=== PATIENT | male | born 1970 | race Hispanic/Latino ===

== ENCOUNTER 2020-01-30 02:04 | Emergency (ER) | payer SELFPAY ==
[2020-01-30 02:50] LABS: Absolute Lymphocytes (CBC) 2.8 K/uL (0.7-4.9); Basophils % 1.1 % (0-1.3); Hematocrit 45.2 % (39.6-49.0); MPV 10.9 fL (7.6-11.3); RBC Red Blood Cell Count 5.34 M/uL (4.33-5.43)
[2020-01-30 02:54] LABS: Protime INR 0.96
[2020-01-30 03:05] LABS: ALT/SGPT 45 U/L (12-78); AST/SGOT 17 U/L (15-37); Albumin 3.9 g/dL (3.4-5.0); Alkaline Phosphatase 69 U/L (45-117); BUN Blood Urea Nitrogen 13 mg/dL (7-18); Bicarbonate 24 mmol/L (21-32); Bilirubin Direct < 0.1 mg/dL (0-0.2); Bilirubin Total 0.3 mg/dL (0.2-1.0); CKMB Creatine Kinase MB 2.9 ng/mL (0.3-3.6); Creatine Phosphokinase 117 U/L (39-308); Glucose Level 200 mg/dL (74-106); Potassium 3.5 mmol/L (3.5-5.1); Protein, Total 7.1 g/dL (6.4-8.2); Sodium Level 140 mmol/L (136-145); Troponin (Emerg Dept Use Only) < 0.02 ng/mL (0.0-0.045)
[2020-01-30 03:06] LABS: Lipase 138 U/L (73-393); Magnesium 2.1 mg/dL (1.8-2.4)
[2020-01-30 03:28] LABS: Barbiturates NEGATIVE (NEGATIVE); Benzodiazepines NEGATIVE (NEGATIVE); Cocaine NEGATIVE (NEGATIVE); METHAMPHETAM NEGATIVE (NEGATIVE); Methadone NEGATIVE (NEGATIVE); Opiates NEGATIVE (NEGATIVE); Phencyclidine NEGATIVE (NEGATIVE); THC Cannibis NEGATIVE (NEGATIVE)
[2020-01-30 03:29] LABS: Urine Blood NEGATIVE (NEG); Urine Glucose TRACE (NEG); Urine Protein 1+ (NEG); Urine Specific Gravity >1.030 (1.005-1.030)
--- NOTE | 2020-01-30 04:04 | ER ---
Nurse's Notes [facility] Name: Rajeev Bellamy Age: 49 yrs Sex: Male : 1970 Arrival Date: 01/30/2020 Time: 02:30 Bed 4 Private MD: Diagnosis: Alcohol use, unspecified with intoxication Presentation: 01/29 02:32 Chief complaint: EMS states: PATIENT CONSUMED BEERS AT A GREEN PARTY. WENT HOME AND PLAYED rv BASKETBALL, FELL DOWN. DENIES HEAD INJURY, ABLE TO STAND BACK UP AND AMBULATE. WENT TO THE BATHROOM TO TAKE A SHOWER, HAD A SYNCOPAL EPISODE. DENIES MEMORY OF THE EVENT AFTER THAT. DENIES ANY PAIN. COMPLAINS OF DIZZINESS. Coronavirus screen: Proceed with normal triage. Ebola Screen: No symptoms or risks identified at this time. Initial Sepsis Screen: Does the patient meet any 2 criteria? No. Patient's initial sepsis screen is negative. Does the patient have a suspected source of infection? No. Patient's initial sepsis screen is negative. Risk Assessment: Do you want to hurt yourself or someone else? Patient reports no desire to harm self or others. Onset of symptoms is unknown. 02:32 Method Of Arrival: EMS: [facility] rv 02:32 Acuity: RUMA 3 rv Triage Assessment: 02:33 General: Appears comfortable, Behavior is calm, cooperative. Pain: Denies pain. EENT: rv No signs and/or symptoms were reported regarding the EENT system. Neuro: Level of Consciousness is awake, alert, obeys commands, Oriented to person, place, time, situation, Moves all extremities. Full function Speech is normal, Pupils are PERRLA, Pupil Size: 2 Reports dizziness. Cardiovascular: Patient's skin is warm and dry. Rhythm is regular. Respiratory: Airway is patent Respiratory effort is even, unlabored, Respiratory pattern is regular. Derm: Skin is intact. Musculoskeletal: No signs and/or symptoms reported regarding the musculoskeletal system. Historical: - Allergies: 02:33 No Known Allergies; rv - Home Meds: 02:33 None [Active]; rv - PMHx: 02:33 None; rv - PSHx: 02:33 Appendectomy; rv - Immunization history:: Adult Immunizations up to date. - Social history:: Smoking status: Patient/guardian denies using tobacco, Stopped _ months ago 6. Screenin:35 Abuse screen: Denies threats or abuse. Denies injuries from another. Nutritional rv screening: No deficits noted. Tuberculosis screening: No symptoms or risk factors identified. Fall Risk None identified. Assessment: 02:20 General: Appears in no apparent distress. comfortable, Behavior is calm, cooperative, jb4 appropriate for age. Pain: Denies pain. Neuro: Level of Consciousness is awake, alert, obeys commands, Oriented to person, place, time, situation, Moves all extremities. Full function Speech is normal, Facial symmetry appears normal, Pupils are PERRLA, Pupil Size: 6 dilated. Cardiovascular: Patient's skin is warm and dry. Respiratory: Airway is patent Respiratory effort is even, unlabored, Respiratory pattern is regular, symmetrical. GI: No signs and/or symptoms were reported involving the gastrointestinal system. : No signs and/or symptoms were reported regarding the genitourinary system. EENT: No signs and/or symptoms were reported regarding the EENT system. Derm: Skin is healthy with good turgor, Skin is pink, warm \T\ dry. Musculoskeletal: Circulation, motion, and sensation intact. Range of motion: intact in all extremities. 03:16 Reassessment: Patient appears in no apparent distress at this time. Patient and/or jb4 family updated on plan of care and expected duration. Pain level reassessed. Pt is resting in bed with eyes closed, respirations are even and unlabored. No s/s of pain or distress noted. Vital Signs: 02:32 BP 120 / 70; Pulse 60; Resp 16; Temp 97.6; Pulse Ox 97% ; Weight 99.79 kg; Height 6 ft. rv (182.88 cm); Pain 0/10; 03:00 BP 136 / 81; Pulse 60; Resp 16; Pulse Ox 96% on R/A; jb4 04:15 BP 126 / 80; Pulse 66; Resp 16; Temp 97.9; Pulse Ox 99% on R/A; rv 02:32 Body Mass Index 29.84 (99.79 kg, 182.88 cm) rv [place] Coma Score: 03:00 Eye Response: spontaneous(4). Verbal Response: oriented(5). Motor Response: obeys rv commands(6). Total: 15. 04:16 Eye Response: spontaneous(4). Verbal Response: oriented(5). Motor Response: obeys rv commands(6). Total: 15. ED Course: 02:30 Patient arrived in ED. lp1 02:31 Robert Montenegro, RN is Primary Nurse. rv 02:33 Triage completed. rv 02:34 Arm band placed on Patient placed in the treatment room, on a stretcher, Patient rv notified of wait time. 02:34 Initial lab(s) drawn, by me, sent to lab. EKG done, by ED staff, reviewed by Naman White MD. Inserted saline lock: 18 gauge in right antecubital area, using aseptic technique. Blood collected. 02:35 Patient has correct armband on for positive identification. Bed in low position. Call rv light in reach. Side rails up X 1. bus driver/monitor on. Pulse ox on. NIBP on. 02:39 Naman White MD is Attending Physician. [facility] 04:16 No provider procedures requiring assistance completed. IV discontinued, intact, rv bleeding controlled, No redness/swelling at site. Pressure dressing applied. Administered Medications: No medications were administered Outcome: 04:04 Discharge ordered by . 7 04:16 Discharged to home ambulatory, with family. rv 04:16 Condition: good 04:16 Discharge instructions given to patient, Instructed on discharge instructions, follow up and referral plans. Demonstrated understanding of instructions, follow-up care. 04:17 Patient left the ED. rv Signatures: Joan Wilson, RN RN lp1 Avery Robles RN RN jb4 Robert Montenegro, LORE TORREZ rv Naman White MD MD [facility]
--- NOTE | 2020-01-30 04:04 | EDPHYS ---
Physician Documentation [facility] Name: Rajeev Bellamy Age: 49 yrs Sex: Male : 1970 Arrival Date: 01/30/2020 Time: 02:30 Bed 4 Private MD: ED Physician Naman White HPI: 01/29 02:51 This 49 yrs old Male presents to ER via EMS with complaints of Syncope. mh7 02:51 The patient has experienced syncope, collapsed. Onset: The symptoms/episode mh7 began/occurred just prior to arrival, today. Duration: This was a single episode, that lasted an unknown period of time. Context: the episode(s) was witnessed, by no one, occurred at home, occurred while the patient was Showering. Just prior to the episode the patient experienced no apparent symptoms. Associated injury: The patient did not suffer any apparent associated injury. Associated signs and symptoms: The patient has no apparent associated signs or symptoms, Pertinent negatives: abdominal pain, agitation, ataxia, blurred vision, chest pain, combativeness, confusion, diaphoresis, diarrhea, dizziness, headache, lightheadedness, nausea, numbness, palpitations, seizure, shortness of breath, tingling, vertigo, vomiting, weakness. Current symptoms: Currently, the patient is not experiencing any symptoms, the patient feels back to baseline. Historical: - Allergies: 02:33 No Known Allergies; rv - Home Meds: 02:33 None [Active]; rv - PMHx: 02:33 None; rv - PSHx: 02:33 Appendectomy; rv - Immunization history:: Adult Immunizations up to date. - Social history:: Smoking status: Patient/guardian denies using tobacco, Stopped _ months ago 6. ROS: 02:51 Constitutional: Negative for fever, chills, and weight loss, Eyes: Negative for injury, mh7 pain, redness, and discharge, ENT: Negative for injury, pain, and discharge, Neck: Negative for injury, pain, and swelling, Cardiovascular: Negative for chest pain, palpitations, and edema, Respiratory: Negative for shortness of breath, cough, wheezing, and pleuritic chest pain, Abdomen/GI: Negative for abdominal pain, nausea, vomiting, diarrhea, and constipation, Back: Negative for injury and pain, : Negative for injury, bleeding, discharge, and swelling, MS/Extremity: Negative for injury and deformity, Skin: Negative for injury, rash, and discoloration, Psych: Negative for depression, anxiety, suicide ideation, homicidal ideation, and hallucinations, Allergy/Immunology: Negative for hives, rash, and allergies, Endocrine: Negative for neck swelling, polydipsia, polyuria, polyphagia, and marked weight changes, Hematologic/Lymphatic: Negative for swollen nodes, abnormal bleeding, and unusual bruising. Exam: 02:51 Constitutional: This is a well developed, well nourished patient who is awake, alert, mh7 and in no acute distress. Head/Face: Normocephalic, atraumatic. Eyes: Pupils equal round and reactive to light, extra-ocular motions intact. Lids and lashes normal. Conjunctiva and sclera are non-icteric and not injected. Cornea within normal limits. Periorbital areas with no swelling, redness, or edema. ENT: Nares patent. No nasal discharge, no septal abnormalities noted. Tympanic membranes are normal and external auditory canals are clear. Oropharynx with no redness, swelling, or masses, exudates, or evidence of obstruction, uvula midline. Mucous membranes moist. Neck: Trachea midline, no thyromegaly or masses palpated, and no cervical lymphadenopathy. Supple, full range of motion without nuchal rigidity, or vertebral point tenderness. No Meningismus. Chest/axilla: Normal chest wall appearance and motion. Nontender with no deformity. No lesions are appreciated. Cardiovascular: Regular rate and rhythm with a normal S1 and S2. No gallops, murmurs, or rubs. Normal PMI, no JVD. No pulse deficits. Respiratory: Lungs have equal breath sounds bilaterally, clear to auscultation and percussion. No rales, rhonchi or wheezes noted. No increased work of breathing, no retractions or nasal flaring. Abdomen/GI: Soft, non-tender, with normal bowel sounds. No distension or tympany. No guarding or rebound. No evidence of tenderness throughout. Back: No spinal tenderness. No costovertebral tenderness. Full range of motion. Skin: Warm, dry with normal turgor. Normal color with no rashes, no lesions, and no evidence of cellulitis. MS/ Extremity: Pulses equal, no cyanosis. Neurovascular intact. Full, normal range of motion. Neuro: Awake and alert, GCS 15, oriented to person, place, time, and situation. Cranial nerves II-XII grossly intact. Motor strength 5/5 in all extremities. Sensory grossly intact. Cerebellar exam normal. Normal gait. Psych: Awake, alert, with orientation to person, place and time. Behavior, mood, and affect are within normal limits. 02:51 Constitutional: The patient appears Appears intoxicated 04:08 ECG was reviewed by the Attending Physician. mh7 Vital Signs: 02:32 BP 120 / 70; Pulse 60; Resp 16; Temp 97.6; Pulse Ox 97% ; Weight 99.79 kg; Height 6 ft. rv (182.88 cm); Pain 0/10; 03:00 BP 136 / 81; Pulse 60; Resp 16; Pulse Ox 96% on R/A; jb4 04:15 BP 126 / 80; Pulse 66; Resp 16; Temp 97.9; Pulse Ox 99% on R/A; rv 02:32 Body Mass Index 29.84 (99.79 kg, 182.88 cm) rv [place] Coma Score: 03:00 Eye Response: spontaneous(4). Verbal Response: oriented(5). Motor Response: obeys rv commands(6). Total: 15. 04:16 Eye Response: spontaneous(4). Verbal Response: oriented(5). Motor Response: obeys rv commands(6). Total: 15. MDM: 02:39 Patient medically screened. [facility] 04:01 Differential Diagnosis: cardiac arrhythmia, drug effect, emotional response, idiopathic mh7 syncope, pseudo seizure, seizure, vasovagal episode, Alcohol intoxication, Substance abuse. Data reviewed: vital signs, nurses notes, EMS record, lab test result(s), cardiac enzymes, CBC, drug level(s), electrolytes, EKG, radiologic studies, CT scan. Data interpreted: campus monitor: rate is 60 beats/min, rhythm is normal sinus rhythm, regular, Interpretation: normal rate, normal rhythm, Pulse oximetry: on room air is 96 %. Interpretation: normal. Counseling: I had a detailed discussion with the patient and/or guardian regarding: the historical points, exam findings, and any diagnostic results supporting the discharge/admit diagnosis, the presence of at least one elevated blood pressure reading (>120/80) during this emergency department visit, lab results, radiology results, the need for outpatient follow up, to return to the emergency department if symptoms worsen or persist or if there are any questions or concerns that arise at home. 01/29 02:32 Order name: UDS; Complete Time: 03:34 01/29 02:32 Order name: Basic Metabolic Panel; Complete Time: 03:34 01/29 02:32 Order name: CBC with Diff; Complete Time: 03:34 01/29 02:32 Order name: Ckmb; Complete Time: 03:34 01/29 02:32 Order name: CPK; Complete Time: 03:34 01/29 02:32 Order name: Hepatic Function; Complete Time: 03:34 01/29 02:32 Order name: Lipase; Complete Time: 03:34 01/29 02:32 Order name: Magnesium; Complete Time: 03:34 01/29 02:32 Order name: Protime (+inr); Complete Time: 03:34 01/29 02:32 Order name: Ptt, Activated; Complete Time: 03:34 01/29 02:32 Order name: Troponin (emerg Dept Use Only); Complete Time: 03:34 01/29 02:32 Order name: ETOH Level; Complete Time: 03:34 01/29 03:27 Order name: Urine Dipstick--Ancillary (enter results); Complete Time: 03:34 mw2 01/29 02:32 Order name: EKG; Complete Time: 02:33 01/29 02:32 Order name: Cardiac monitoring; Complete Time: 02:39 01/29 02:32 Order name: EKG - Nurse/Tech; Complete Time: 02:39 01/29 02:32 Order name: IV Saline Lock; Complete Time: 02:39 01/29 02:32 Order name: Labs collected and sent; Complete Time: 02:39 01/29 02:32 Order name: NPO; Complete Time: 02:39 01/29 02:32 Order name: O2 Per Protocol; Complete Time: 02:40 01/29 02:32 Order name: O2 Sat Monitoring; Complete Time: 02:40 01/29 02:32 Order name: Urine Dipstick-Ancillary (obtain specimen); Complete Time: 03:09 rv EC:08 Rate is 57 beats/min. Rhythm is regular, Normal Sinus Rhythm. QRS [place] is Normal. QRS mh7 is negative in leads III, aVF. IA interval is prolonged at 212 msec. QRS interval is normal. QT interval is normal. No Q waves. T waves are Normal. Administered Medications: No medications were administered Disposition: 01/30/20 04:04 Discharged to Home. Impression: Alcohol use, unspecified with intoxication. - Condition is Stable. - Discharge Instructions: Alcohol Intoxication, [id number]. - Medication Reconciliation Form, Thank You Letter, Antibiotic Education, Prescription Opioid Use form. - Follow up: Private Physician; When: 1 - 2 days; Reason: Worsening of condition, Recheck today's complaints, Re-evaluation by your physician. - Problem is new. - Symptoms have improved. Signatures: Dispatcher [employer] [facility] Robert Montenegro, RN RN Naman Hollis MD MD mh7 Corrections: (The following items were deleted from the chart) 02:47 02:33 Head Brain Wo Cont+CT.RAD.BRZ ordered. [facility] 04:17 04:04 01/30/2020 04:04 Discharged to Home. Impression: Alcohol use, unspecified with rv intoxication. Condition is Stable. Forms are Medication Reconciliation Form, Thank You Letter, Antibiotic Education, Prescription Opioid Use. Follow up: Private Physician; When: 1 - 2 days; Reason: Worsening of condition, Recheck today's complaints, Re-evaluation by your physician. Problem is new. Symptoms have improved. mh7
[2020-01-30 04:25] VITALS: BP 126/80; TEMP 97.9; O2SAT 99
--- NOTE | 2020-01-31 07:47 | EKG ---
Test Date: 2020-01-30 Test Time: 02:30:57 Forestry Engineer: SOBIA MEASUREMENT RESULTS: Intervals: Rate: 57 [place]: 212 QRSD: 112 QT: 432 QTc: 420 [place]: P: 60 [place]: 212 QRS: -45 T: 12 INTERPRETIVE STATEMENTS: Sinus bradycardia with 1st degree AV block Left anterior fascicular block Abnormal ECG No previous ECG available for comparison Electronically Signed On 01-31-20 07:44:45 CDT by Francois Cash
== END 2020-01-30 04:17 | disposition home or self-care (01) ==
LOC: ER 02:04
DX: F10.129 Alcohol abuse with intoxication, unspecified (principal)
CPT/HCPCS: 36415; 80048; 80076; 80307; 80320; 81003; 82550; 82553; 83690; 83735; 84484; 85025; 85610; 85730; 93005; 99284

== ENCOUNTER 2021-11-27 21:57 | Inpatient (IN) | payer SELFPAY ==
[2021-11-27] MEDS ORDERED: NA CHLORIDE 0.9% 2,000 ML ONE (23:44)
[2021-11-27 23:50] LABS: Absolute Lymphocytes (CBC) 2.3 K/uL (0.7-4.9); Lymphocytes % 26.2 % (15.3-44.8); MPV 10.1 fL (7.6-11.3)
[2021-11-28 00:05] LABS: Albumin 3.6 g/dL (3.4-5.0); Bilirubin Total 0.7 mg/dL (0.2-1.0); Protein, Total 6.7 g/dL (6.4-8.2)
[2021-11-28] MEDS ORDERED: ONDANSETRON 4 MG/2 ML VIAL ONE (01:07)
[2021-11-28] MEDS ORDERED: MORPHINE 4 MG/ML SYR ONE (01:07)
[2021-11-28 01:43] LABS: Urine Blood Trace-intact (Negative); Urine Glucose Negative (Negative); Urine Protein 1+ (Negative); Urine Specific Gravity >=1.030 (1.005-1.030); Urine pH 5.5 (5.0-7.0)
[2021-11-28] MEDS ORDERED: NA CHLORIDE 0.9% 1,000 ML ONE ×2 (01:44→03:26)
[2021-11-28] MEDS ORDERED: ACETYLCYST 6,000 MG/30 ML VIAL ONE (01:44)
--- NOTE | 2021-11-28 01:57 | ER ---
Nurse's Notes [facility] Name: Rajeev Bellamy Age: 51 yrs Sex: Male : 1970 Arrival Date: 11/27/2021 Time: 22:00 Bed 15 Private MD: Diagnosis: Hydronephrosis with renal and ureteral calculous obstruction-5 mm right ureter, left 2mm;Pulmonary embolism without acute cor pulmonale-right middle lobe, right lower lobe;Unspecified kidney failure-insufficency;Cholecystitis, unspecified-cholelithiasis Presentation: 11/27 22:53 Chief complaint: Patient states: C/o right flank pain for the past week, states pain is ll3 worse today 05/04, states it hurts to take a deep breath. Coronavirus screen: Vaccine status: Patient reports receiving the 2nd dose of the covid vaccine. At this time, the client does not indicate any symptoms associated with coronavirus-19. Ebola Screen: No symptoms or risks identified at this time. Initial Sepsis Screen: Does the patient meet any 2 criteria? No. Patient's initial sepsis screen is negative. Does the patient have a suspected source of infection? No. Patient's initial sepsis screen is negative. Risk Assessment: Do you want to hurt yourself or someone else? Patient reports no desire to harm self or others. Onset of symptoms is unknown. 22:53 Method Of Arrival: Ambulatory ll3 22:53 Acuity: RUMA 3 ll3 Triage Assessment: 22:56 General: Appears uncomfortable, Behavior is calm, cooperative. Pain: Complains of pain ll3 in anterior aspect of right lateral abdomen and posterior aspect of right lateral abdomen Pain currently is 9 out of 10 on a pain scale. Aggravated by Taking a deep breath. Neuro: Level of Consciousness is awake, alert, obeys commands, Oriented to person, place, time, situation. Cardiovascular: Patient's skin is warm and dry. Respiratory: Respiratory effort is even, unlabored, Respiratory pattern is regular, symmetrical. GI: Reports vomiting. Derm: Skin is pink, warm \T\ dry. Historical: - Allergies: 22:56 No Known Allergies; ll3 - Home Meds: 22:56 None [Active]; ll3 - PMHx: 22:56 None; ll3 - PSHx: 22:56 None; ll3 - Immunization history:: Client reports receiving the 2nd dose of the Covid vaccine. - Social history:: Smoking status: Patient denies any tobacco usage or history of. Screenin:38 Abuse screen: Denies threats or abuse. Nutritional screening: No deficits noted. jb4 Tuberculosis screening: No symptoms or risk factors identified. Fall Risk None identified. Assessment: 23:38 General: Appears in no apparent distress. comfortable, Behavior is calm, cooperative. jb4 Pain: Complains of pain in right upper quadrant Pain does not radiate. Pain currently is 5 out of 10 on a pain scale. Neuro: Level of Consciousness is awake, alert, obeys commands, Oriented to person, place, time, situation. Cardiovascular: Patient's skin is warm and dry. Respiratory: Airway is patent Respiratory effort is even, unlabored, Respiratory pattern is regular, symmetrical. GI: No signs and/or symptoms were reported involving the gastrointestinal system. : No signs and/or symptoms were reported regarding the genitourinary system. EENT: No signs and/or symptoms were reported regarding the EENT system. Derm: Skin is intact, Skin is pink, warm \T\ dry. 11/28 01:10 Reassessment: Patient appears in no apparent distress at this time. Patient and/or jb4 family updated on plan of care and expected duration. Pain level reassessed. Patient is alert, oriented x 3, equal unlabored respirations, skin warm/dry/pink. Pt reports an increase in pain. provider notified, see MAR for orders. 02:05 Reassessment: Patient appears in no apparent distress at this time. Patient and/or jb4 family updated on plan of care and expected duration. Pain level reassessed. Patient is alert, oriented x 3, equal unlabored respirations, skin warm/dry/pink. Ultrasound is at the bedside. 02:59 Reassessment: Patient appears in no apparent distress at this time. Patient and/or jb4 family updated on plan of care and expected duration. Pain level reassessed. Patient is alert, oriented x 3, equal unlabored respirations, skin warm/dry/pink. Vital Signs: 11/27 22:53 BP 128 / 75; Pulse 56; Resp 17; Temp 99.0(TE); Pulse Ox 99% on R/A; Weight 95.25 kg ll3 (R); Height 6 ft. 0 in. (182.88 cm) (R); Pain 9/10; 11/28 01:10 BP 166 / 96; Pulse 58; Resp 16; Pulse Ox 100% on R/A; jb4 02:00 BP 149 / 88; Pulse 51; Resp 16; Pulse Ox 99% on R/A; jb4 02:45 BP 149 / 93; Pulse 51; Resp 18; Pulse Ox 98% on R/A; jb4 11/27 22:53 Body Mass Index 28.48 (95.25 kg, 182.88 cm) ll3 ED Course: 11/27 22:00 Patient arrived in ED. ja2 22:56 Triage completed. ll3 22:56 Arm band placed on. ll3 23:09 Lee Linda MD is Attending Physician. gregory 23:28 Avery Robles, RN is Primary Nurse. jb4 23:38 Patient has correct armband on for positive identification. Placed in gown. Bed in low jb4 position. Call light in reach. Side rails up X 1. Pulse ox on. NIBP on. 23:38 Initial lab(s) drawn, by mt, sent to lab. Inserted saline lock: 18 gauge in right jb4 antecubital area, using aseptic technique. Blood collected. 0406 00:56 CT Chest For PE Angio In Process Unspecified. EDMS 00:56 CT Abd/Pelvis - IV Contrast Only In Process Unspecified. EDMS 01:54 Marco A Broussard is Hospitalizing Provider. gregory 02:43 US Extremity Venous W Compression Adolph In Process Unspecified. EDMS 02:59 No provider procedures requiring assistance completed. Patient admitted, IV remains in jb4 place. Administered Medications: 11/27 23:41 Not Given (Patient Refused): Zofran (Ondansetron) 4 mg IVP once; over 2 minutes jb4 23:41 Drug: NS 0.9% 1000 ml Route: IV; Rate: 1 bolus; Site: right antecubital; jb4 11/28 01:10 Follow up: Response: No adverse reaction; IV Status: Completed infusion; IV Intake: jb4 1000ml 11/27 23:41 Not Given (Patient Refused): morphine 4 mg IVP once; RASS on ADMIN: Combtv4, Very jb4 Agttd3, Agttd2, Rstlss1, AlertClm0, Drwsy-1, Lt Sdtn-2, Mod Sdtn-3, Dp Sdtn-4, UnArsble-5 23:42 Drug: NS 0.9% 1000 ml Route: IV; Rate: 1 bolus; Site: right antecubital; jb4 11/28 01:10 Follow up: Response: No adverse reaction; IV Status: Completed infusion; IV Intake: jb4 1000ml 01:09 Drug: morphine 4 mg Route: IVP; Site: right antecubital; jb4 01:46 Follow up: Response: No adverse reaction; Marked relief of symptoms; Pain is decreased jb4 01:09 Drug: Zofran (Ondansetron) 4 mg Route: IVP; Site: right antecubital; jb4 01:46 Follow up: Response: No adverse reaction jb4 01:46 Drug: NS 0.9% 1000 ml Route: IV; Rate: 1 bolus; Site: right antecubital; jb4 01:47 Drug: Mucomyst - Acetylcysteine 600 mg Route: PO; jb4 02:57 Follow up: Response: No adverse reaction jb4 02:45 Drug: Lovenox (enoxaparin) 1 mg/kg Route: Sub-Q; Site: right lower abdomen; jb4 02:45 Drug: Rocephin (cefTRIAXone) 1 grams Route: IV; Rate: per protocol; Site: right jb4 antecubital; 02:45 Drug: Pepcid (famotidine) 20 mg Route: IVP; Site: right antecubital; jb4 Intake: 01:10 IV: 1000ml; Total: 1000ml. jb4 01:10 IV: 1000ml; Total: 2000ml. jb4 Outcome: 01:56 Decision to Hospitalize by Provider. gregory 02:59 Admitted to ER Hold. Please see [facility] for further documentation. jb4 02:59 Condition: stable 02:59 Instructed on the need for admit, Demonstrated understanding of instructions. 09:15 Patient left the ED. vg1 Signatures: Dispatcher [employer] Lee Lindsay MD MD cha Bryson, James RN RN jb4 Vivi Deleon RN RN vg1 Marimar Lundberg Lynsea, RN RN ll3
--- NOTE | 2021-11-28 01:57 | EDPHYS ---
Physician Documentation [facility] Name: Rajeev Bellamy Age: 51 yrs Sex: Male : 1970 Arrival Date: 11/27/2021 Time: 22:00 Bed 15 Private MD: ED Physician Lee Linda HPI: 11/27 23:22 This 51 yrs old Male presents to ER via Ambulatory with complaints of Flank gregory Pain. 23:22 The patient complains of pain in the right mid back and right low back. The pain gregory radiates to the right mid back and right low back. Onset: The symptoms/episode began/occurred 1 week(s) ago. Modifying factors: The symptoms are alleviated by nothing. the symptoms are aggravated by movement. Associated signs and symptoms: The patient has no apparent associated signs or symptoms. Severity of pain: At its worst the pain was mild moderate in the emergency department the pain is unchanged. The patient has not experienced similar symptoms in the past. Historical: - Allergies: 22:56 No Known Allergies; ll3 - Home Meds: 22:56 None [Active]; ll3 - PMHx: 22:56 None; ll3 - PSHx: 22:56 None; ll3 - Immunization history:: Client reports receiving the 2nd dose of the Covid vaccine. - Social history:: Smoking status: Patient denies any tobacco usage or history of. ROS: 23:23 Constitutional: Negative for fever, chills, and weight loss, Eyes: Negative for injury, gregory pain, redness, and discharge, ENT: Negative for injury, pain, and discharge, Neck: Negative for injury, pain, and swelling, Cardiovascular: Negative for chest pain, palpitations, and edema, : Negative for injury, bleeding, discharge, and swelling, MS/Extremity: Negative for injury and deformity, Skin: Negative for injury, rash, and discoloration, Neuro: Negative for headache, weakness, numbness, tingling, and seizure, Psych: Negative for depression, anxiety, suicide ideation, homicidal ideation, and hallucinations, Allergy/Immunology: Negative for hives, rash, and allergies, Endocrine: Negative for neck swelling, polydipsia, polyuria, polyphagia, and marked weight changes, Hematologic/Lymphatic: Negative for swollen nodes, abnormal bleeding, and unusual bruising. 23:23 Respiratory: Positive for pleurisy. 23:23 Abdomen/GI: Positive for abdominal pain. Exam: 23:23 Constitutional: This is a well developed, well nourished patient who is awake, alert, gregory and in no acute distress. Head/Face: Normocephalic, atraumatic. Eyes: Pupils equal round and reactive to light, extra-ocular motions intact. Lids and lashes normal. Conjunctiva and sclera are non-icteric and not injected. Cornea within normal limits. Periorbital areas with no swelling, redness, or edema. ENT: Nares patent. No nasal discharge, no septal abnormalities noted. Tympanic membranes are normal and external auditory canals are clear. Oropharynx with no redness, swelling, or masses, exudates, or evidence of obstruction, uvula midline. Mucous membranes moist. Neck: Trachea midline, no thyromegaly or masses palpated, and no cervical lymphadenopathy. Supple, full range of motion without nuchal rigidity, or vertebral point tenderness. No Meningismus. Chest/axilla: Normal chest wall appearance and motion. Nontender with no deformity. No lesions are appreciated. Cardiovascular: Regular rate and rhythm with a normal S1 and S2. No gallops, murmurs, or rubs. Normal PMI, no JVD. No pulse deficits. Respiratory: Lungs have equal breath sounds bilaterally, clear to auscultation and percussion. No rales, rhonchi or wheezes noted. No increased work of breathing, no retractions or nasal flaring. Abdomen/GI: Soft, non-tender, with normal bowel sounds. No distension or tympany. No guarding or rebound. No evidence of tenderness throughout. Back: No spinal tenderness. No costovertebral tenderness. Full range of motion. Skin: Warm, dry with normal turgor. Normal color with no rashes, no lesions, and no evidence of cellulitis. MS/ Extremity: Pulses equal, no cyanosis. Neurovascular intact. Full, normal range of motion. Neuro: Awake and alert, GCS 15, oriented to person, place, time, and situation. Cranial nerves II-XII grossly intact. Motor strength 5/5 in all extremities. Sensory grossly intact. Cerebellar exam normal. Normal gait. Psych: Awake, alert, with orientation to person, place and time. Behavior, mood, and affect are within normal limits. 23:31 Musculoskeletal/extremity: DVT Exam: No signs of deep vein thrombosis. no pain, no gregory swelling, no tenderness, negative Homans' sign noted on exam, no appreciated bluish discoloration, no erythema, no increased warmth. Vital Signs: 22:53 BP 128 / 75; Pulse 56; Resp 17; Temp 99.0(TE); Pulse Ox 99% on R/A; Weight 95.25 kg ll3 (R); Height 6 ft. 0 in. (182.88 cm) (R); Pain 9/10; 11/28 01:10 BP 166 / 96; Pulse 58; Resp 16; Pulse Ox 100% on R/A; jb4 02:00 BP 149 / 88; Pulse 51; Resp 16; Pulse Ox 99% on R/A; jb4 02:45 BP 149 / 93; Pulse 51; Resp 18; Pulse Ox 98% on R/A; jb4 11/27 22:53 Body Mass Index 28.48 (95.25 kg, 182.88 cm) ll3 MDM: 11/27 23:09 Patient medically screened. gregory 23:24 Antibiotic administration: Not indicated. Differential diagnosis: nephrolithiasis, gregory pyelonephritis, UTI, diverticulitis, pancreatitis, pneumonia, Pneumothorax pulmonary edema, Pulmonary Embolism. The patient's Wells Deep Vein Thrombosis Score was calculated as follows: Total Score: 0-2 Pts- Low Risk. The patient's pulmonary embolism risk score was calculated as follows: Total Score: 0-2 points. This patient was found to be at low risk for a pulmonary embolism by using the Well's assessment criteria. Immunization status: Influenza vaccine: Data reviewed: vital signs, nurses notes, lab test result(s), EKG, radiologic studies, CT scan. 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 Test interpretation: by ED physician or midlevel provider: ECG, plain radiologic studies. Counseling: I had a detailed discussion with the patient and/or guardian regarding: the historical points, exam findings, and any diagnostic results supporting the discharge/admit diagnosis, lab results, radiology results. 11/27 23:15 Order name: CBC with Diff; Complete Time: 00:22 gregory 11/27 23:15 Order name: CMP; Complete Time: 00:22 gregory 11/27 23:15 Order name: Lipase; Complete Time: 00:22 [facility] 11/27 23:15 Order name: CT Chest For PE Angio [facility] 11/28 01:43 Order name: Urine Dipstick-Ancillary; Complete Time: 01:52 EDMS 11/28 02:22 Order name: COVID-19/FLU A+B (Document "Date of Onset" if Symptomatic) 11/27 23:15 Order name: CT Abd/Pelvis - IV Contrast Only [facility] 11/28 01:42 Order name: US Extremity Venous W Compression [facility] 11/28 02:03 Order name: US Abdomen Limited: spleen/liver [facility] 11/27 23:15 Order name: IV Saline Lock; Complete Time: 23:41 [facility] 11/27 23:15 Order name: Labs collected and sent; Complete Time: 23:41 [facility] 11/27 23:15 Order name: Urine Dipstick-Ancillary (obtain specimen); Complete Time: 01:29 gregory Administered Medications: 23:41 Not Given (Patient Refused): Zofran (Ondansetron) 4 mg IVP once; over 2 minutes [facility] 23:41 Drug: NS 0.9% 1000 ml Route: IV; Rate: 1 bolus; Site: right antecubital; jb4 11/28 01:10 Follow up: Response: No adverse reaction; IV Status: Completed infusion; IV Intake: jb4 1000ml 11/27 23:41 Not Given (Patient Refused): morphine 4 mg IVP once; RASS on ADMIN: Combtv4, Very jb4 Agttd3, Agttd2, Rstlss1, AlertClm0, Drwsy-1, Lt Sdtn-2, Mod Sdtn-3, Dp Sdtn-4, UnArsble-5 23:42 Drug: NS 0.9% 1000 ml Route: IV; Rate: 1 bolus; Site: right antecubital; jb4 11/28 01:10 Follow up: Response: No adverse reaction; IV Status: Completed infusion; IV Intake: jb4 1000ml 01:09 Drug: morphine 4 mg Route: IVP; Site: right antecubital; jb4 01:46 Follow up: Response: No adverse reaction; Marked relief of symptoms; Pain is decreased jb4 01:09 Drug: Zofran (Ondansetron) 4 mg Route: IVP; Site: right antecubital; jb4 01:46 Follow up: Response: No adverse reaction jb4 01:46 Drug: NS 0.9% 1000 ml Route: IV; Rate: 1 bolus; Site: right antecubital; jb4 01:47 Drug: Mucomyst - Acetylcysteine 600 mg Route: PO; jb4 02:57 Follow up: Response: No adverse reaction jb4 02:45 Drug: Lovenox (enoxaparin) 1 mg/kg Route: Sub-Q; Site: right lower abdomen; jb4 02:45 Drug: Rocephin (cefTRIAXone) 1 grams Route: IV; Rate: per protocol; Site: right jb4 antecubital; 02:45 Drug: Pepcid (famotidine) 20 mg Route: IVP; Site: right antecubital; jb4 Disposition Summary: 11/28/21 01:56 Hospitalization Ordered Hospitalization Status: Inpatient Admission gregory Provider: Marco A Broussard cha Condition: Fair gregory Problem: new gregory Symptoms: have improved gregory Bed/Room Type: Standard gregory Location: Telemetry/MedSurg (Inpatient)(11/28/21 06:11) cg Room Assignment: 230(11/28/21 07:41) bd Diagnosis - Hydronephrosis with renal and ureteral calculous obstruction - 5 mm right ureter, gregory left 2mm - Pulmonary embolism without acute cor pulmonale - right middle lobe, right lower lobecha - Unspecified kidney failure - insufficency gregory - Cholecystitis, unspecified - cholelithiasis gregory Forms: - Medication Reconciliation Form gregory - SBAR form gregory Signatures: Dispatcher [employer] EDJoan Giron Corey, MD MD cha Garcia, Cindy RN RN Avery Lopez RN RN jb4 Zaire Vaz RN RN valentina3 Sana Calvillo PA PA sb3 Corrections: (The following items were deleted from the chart) 02:56 01:56 Telemetry/MedSurg (Inpatient) gregory cg 02:56 01:56 gregory cg 06:11 02:56 [facility] ER HOLD cg cg 06:11 02:56 ERHOLD- cg cg 07:41 06:11 bd
[2021-11-28] MEDS ORDERED: FAMOTIDINE 20 MG/2 ML VIAL IV ONE (02:31)
[2021-11-28] MEDS ORDERED: CEFTRIAXONE 1000 MG/VIAL ONE (02:31)
[2021-11-28] MEDS ORDERED: ENOXAPARIN 100 MG/ML SYR SQ ONE (02:31)
--- NOTE | 2021-11-28 03:04 | P.HP ---
Certification for Inpatient Patient admitted to: Inpatient With expected LOS: >2 Midnights Patient will require the following post-hospital care: None Practitioner: I am a practitioner with admitting privileges, knowledge of patient current condition, hospital course, and medical plan of care. Services: Services provided to patient in accordance with Admission requirements found in Title 42 Section 412.3 of the Code of Federal Regulations Patient History Date of Service: 11/28/21 Reason for admission: PE, Nephrolithiasis History of Present Illness: Patient is a 51-year-old male with no past medical history who presented to the ED with a 1 week history of right-sided flank pain and right- sided pain upon inspiration. In the ED he was found to have urine in his blood, creatinine of 1.48. CT showed "small subsegmental pulmonary emboli in the right middle and right lower lobes, distal right ureter 5 mm stone with mild right hydronephrosis and hydroureter, left-sided 2 mm proximal ureteral stone with no evidence of left-sided hydronephrosis, cholelithiasis, small rim-enhancing lesion in the spleen of uncertain significance." Follow-up ultrasound confirmed cholelithiasis with gallbladder thickening without any signs of choledocholithiasis. Negative for DVT. He was given therapeutic dose of Lovenox and Rocephin. His pain has improved with morphine. Will admit patient for further evaluation and treatment of nephrolithiasis with hydronephrosis and pulmonary embolism. Allergies No Known Allergies Allergy (Unverified 11/28/21 03:18) Home medications list reviewed: Yes (none) Home Medications: NK [No Home Meds] 11/28/21 - Past Medical/Surgical History Diabetic: No Past Medical History: Patient denies medical history -: Appendectomy - Family History Family History: Reviewed- Non-Contributory - Social History Smoking Status: Never smoker Alcohol use: Yes CD- Drugs: No Caffeine use: Yes Place of Residence: Home Review of Systems 10-point ROS is otherwise unremarkable Respiratory: SOB with Excertion Musculoskeletal: Back Pain Physical Examination - Physical Exam General: Alert, In no apparent distress HEENT: Atraumatic, PERRLA, Mucous membr. moist/pink, EOMI, Sclerae nonicteric Neck: Supple, 2+ carotid pulse no bruit, No LAD, Without JVD or thyroid abnormality Respiratory: Clear to auscultation bilaterally, Normal air movement Cardiovascular: Regular rate/rhythm, Normal S1 S2 Gastrointestinal: Normal bowel sounds, No tenderness Musculoskeletal: No tenderness Integumentary: No rashes Neurological: Normal speech, Normal strength at 5/5 x4 extr, Normal tone, Normal affect - Studies Laboratory Data (last 24 hrs) 11/27/21 23:38: Sodium 139, Potassium 4.0, BUN 21 H, Creatinine 1.48 H, Glucose 111 H, Total Bilirubin 0.7, AST 23, ALT 36, Alkaline Phosphatase 63, Lipase 102 11/27/21 23:38: WBC 8.8, Hgb 13.2 L, Hct 38.0 L, Plt Count 176 Assessment and Plan - Problems (Diagnosis) (1) Bilateral nephrolithiasis Current Visit: Yes Status: Acute (2) Hydronephrosis due to obstruction of ureter Current Visit: Yes Status: Acute (3) Pulmonary embolism Current Visit: Yes Status: Acute Qualifiers: Pulmonary embolism type: single subsegmental (without acute cor pulmonale) Qualified Code(s): I26.93 - Single subsegmental pulmonary embolism without acute cor pulmonale (4) Acute kidney injury Current Visit: Yes Status: Acute - Plan -Patient will be admitted with urology consulting for treatment of 5 mm right- sided stone with resulting hydronephrosis. Patient is n.p.o. -Have also consulted Dr. Gracia for PE. Patient received therapeutic dose of Lovenox in the ED. Will continue. Patient is saturating well without increased work of breathing. Ultrasound negative for DVT. We will continue to monitor. -continue patient on IV pain medication, antiemetics, IV antibiotics, and IV fluids Discharge Plan: Home Plan to discharge in: Greater than 2 days - Advance Directives Does patient have a Living Will: No Does patient have a Durable POA for Healthcare: No - Code Status/Comfort Care Code Status Assessed: Yes (Full) Critical Care: No Time Spent Managing Pts Care (In Minutes): 70
[2021-11-28] MEDS ORDERED: ZOLPIDEM TARTRATE 5 MG TABLET PO PRN (03:18)
[2021-11-28] MEDS ORDERED: MORPHINE 4 MG/ML SYR IV PRN (03:18)
[2021-11-28] MEDS ORDERED: ONDANSETRON 4 MG/2 ML VIAL IV PRN (03:18)
[2021-11-28] MEDS ORDERED: ACETAMINOPHEN 500 MG TAB PO PRN (03:18)
[2021-11-28] MEDS: NA CHLORIDE 0.9% 1,000 ML IV SCH ×3 (03:18→23:50)
[2021-11-28 05:10] LABS: SARS-COV-2 RT PCR NEGATIVE (NEGATIVE)
[2021-11-28] MEDS ORDERED: ENOXAPARIN 100 MG/ML SYR SQ SCH (09:00)
[2021-11-28] MEDS: CEFTRIAXONE 1,000 MG in NA CHLORIDE 0.9% 50 ML IVPB SCH ×2 (10:20→20:10)
--- NOTE | 2021-11-28 10:39 | RAD REPORT ---
EXAM DESCRIPTION: CT - Abdomen Pelvis W Contrast - 11/28/2021 6:56 am CLINICAL HISTORY: CHEST PAIN COMPARISON: None Available TECHNIQUE: Multiple helical axial tomographic images were obtained of the chest following administra tion of intravenous contrast per angiographic protocol. Subsequent axial images were obtained of the abdomen and pelvis. Coronal and sagittal reformatted images were obtained. MIP reformatted images of the chest were obtained. This exam was performed according to our departmental dose-optimization program, which includes autom ated exposure control, adjustment of the mA and/or kV according to patient size and/or use of iterati ve reconstruction technique. FINDINGS: CHEST: Thyroid gland: unremarkable. Axilla: unremarkable. Pulmonary arteries: There is a filling defect within a subsegmental arterial branch of the lateral ri ght lower lobe compatible with pulmonary embolus (series 401, image 44). There is a subsegmental pulm onary embolus within the medial right middle lobe (series 404, image 94). Aorta: No evidence of aortic dissection or aneurysm. Mediastinum: Unremarkable. No adenopathy. Heart: Heart is normal in size. Lungs/airways: No consolidation. Airways are patent. Pleural spaces: No significant pleural effusion. No pneumothorax. Osseous: Unremarkable. Soft tissues: Unremarkable. Abdomen and pelvis: Liver: Homogenous attenuation is noted. Gallbladder/biliary: There is a 4.6 cm x 2.6 cm stone in the gallbladder. Gallbladder is normal in si ze. No evidence of pericholecystic inflammation. No significant biliary ductal dilatation. Pancreas: Unremarkable. No evidence of ductal enlargement. Spleen: There is a 1.6 cm rim-enhancing lesion in the superior spleen. No splenomegaly. Adrenals: Unremarkable. Kidneys and ureters: There is a 5 mm stone in the distal right ureter with mild right hydronephrosis and hydroureter. There is a 5 mm stone at the inferior pole of the right kidney. There is mildly ruthie yed enhancement of the right kidney. There is a 2 mm stone in the inferior pole of the left kidney. T here is a 2 mm stone in the proximal left ureter. No evidence of left-sided hydronephrosis. Bladder: Unremarkable. Pelvic organs: Unremarkable. Bowel: No evidence of bowel obstruction. No bowel wall thickening. Appendix appears unremarkable. Vasculature: Mild aortoiliac atherosclerosis is present. Peritoneum: No free air. No significant free fluid. Lymph nodes: Unremarkable. Soft tissues: Unremarkable. Bones: Unremarkable. IMPRESSION: 1. Small subsegmental pulmonary emboli in the right middle and right lower lobes. 2. Distal right ureteral 5 mm stone with mild right hydronephrosis and hydroureter. 3. Left-sided 2 mm proximal ureteral stone. No evidence of left-sided hydronephrosis. 4. Bilateral nephrolithiasis. 5. Cholelithiasis. 6. Small rim-enhancing lesion in the spleen of uncertain significance, nonemergent follow-up ultras ound can be obtained as appropriate. THIS REPORT CONTAINS FINDINGS THAT MAY BE CRITICAL TO PATIENT CARE: The findings were verbally discu ssed via telephone conference with Dr. Linda by Dr. Cooper at 0141 hours central time on November 28 2. The results were acknowledged and understood. Electronically signed by: Lavell Cooper MD 11/28/2021 1:44 AM CDT Due to temporary technical issues with the PACS/Fluency reporting system, reports are being signed by the in house radiologist without review as a courtesy to ensure prompt reporting. The interpreting r adiologist is fully responsible for the content of the report.
--- NOTE | 2021-11-28 10:42 | RAD REPORT ---
EXAM DESCRIPTION: US - Abdomen Exam Limited - 11/28/2021 3:09 am CLINICAL HISTORY: 51 years Male, spleen lesion COMPARISON: CT abdomen pelvis November 28, 2021 TECHNIQUE: Limited sonographic imaging of the abdomen was performed. FINDINGS: Known splenic lesion seen on prior CT is not visualized on this study and may be isoechoic to parenchyma. Spleen measures 10.5 cm longitudinally appearing normal in size. Liver measures 19 cm longitudinally and demonstrates increased echogenicity suggesting fatty changes. Normal directional flow in the main portal vein is demonstrated. A 1.3 cm shadowing stone in the gallbladder is present. Gallbladder wall appears borderline thickened measuring 4 mm in width. Common bile duct is normal in size measuring 4 mm in width. IMPRESSION: 1. Known splenic lesion is not well seen, and in correlation with prior CT is favored to represent a hemangioma. 2. Hepatic steatosis. 3. Cholelithiasis. Electronically signed by: Lavell Cooper MD 11/28/2021 4:09 AM CDT Due to temporary technical issues with the PACS/Fluency reporting system, reports are being signed by the in house radiologist without review as a courtesy to ensure prompt reporting. The interpreting r adiologist is fully responsible for the content of the report.
--- NOTE | 2021-11-28 10:44 | RAD REPORT ---
EXAM DESCRIPTION: US - Extrem Venous W Compress Adolph - 11/28/2021 3:09 am CLINICAL HISTORY: Pulmonary embolism. COMPARISON: None. TECHNIQUE: Grayscale, color Doppler, duplex Doppler, spectral Doppler images and analysis with compr ession and augmentation of right and left lower extremity veins. FINDINGS: Right and Left common femoral, greater saphenous, femoral, deep (profunda) femoral, poplit eal, posterior tibial veins unremarkable without evidence of clot. IMPRESSION: No sonographic evidence of right or left lower extremity DVT. Electronically signed by: Andres Champion MD 11/28/2021 2:54 AM CDT Due to temporary technical issues with the PACS/Fluency reporting system, reports are being signed by the in house radiologist without review as a courtesy to ensure prompt reporting. The interpreting r adiologist is fully responsible for the content of the report.
--- NOTE | 2021-11-28 11:43 | P.CNS ---
Date of Consult: 11/28/21 Reason for Consult: Pulmonary embolism Chief Complaint: PE, Nephrolithiasis History of Present Illness: Patient is 51 years of age admitted with sudden onset of right-sided flank pain hematuria dental finding of pulmonary embolism seems to have controlled does have nephrolithiasis on the right side Allergies No Known Allergies Allergy (Unverified 11/28/21 03:18) Home Medications: NK [No Home Meds] 11/28/21 - Past Medical/Surgical History Diabetic: No Past Medical History: Patient denies medical history -: Appendectomy - Social History Alcohol use: Yes CD- Drugs: No Caffeine use: Yes Place of Residence: Home Review of Systems 10-point ROS is otherwise unremarkable Physical Examination Temp Pulse Resp BP Pulse Ox 98.3 F 50 16 147/80 H 96 11/28/21 10:00 11/28/21 10:00 11/28/21 10:00 11/28/21 10:00 11/28/21 10:00 General: Alert, In no apparent distress, Oriented x3 Neck: Supple Respiratory: Clear to auscultation bilaterally Cardiovascular: No edema, Regular rate/rhythm Gastrointestinal: Normal bowel sounds, Soft and benign Laboratory Data (last 24 hrs) 11/27/21 23:38: Sodium 139, Potassium 4.0, BUN 21 H, Creatinine 1.48 H, Glucose 111 H, Total Bilirubin 0.7, AST 23, ALT 36, Alkaline Phosphatase 63, Lipase 102 11/27/21 23:38: WBC 8.8, Hgb 13.2 L, Hct 38.0 L, Plt Count 176 - Problems (1) Hydronephrosis due to obstruction of ureter Current Visit: Yes Status: Acute (2) Pulmonary embolism Current Visit: Yes Status: Acute Qualifiers: Pulmonary embolism type: single subsegmental (without acute cor pulmonale) Qualified Code(s): I26.93 - Single subsegmental pulmonary embolism without acute cor pulmonale Conclusions/Impression: Patient is 51 years of age admitted with right-sided flank pain and hematuria CT scan result as below small subsegmental pulmonary emboli in the right middle and right lower lobes. 2. Distal right ureteral 5 mm stone with mild right hydronephrosis and hydroureter. 3. Left-sided 2 mm proximal ureteral stone. No evidence of left-sided hydronephrosis. 4. Bilateral nephrolithiasis. 5. Cholelithiasis. 6. Small rim-enhancing lesion in the spleen of uncertain significance, Patient is improving renal function is abnormal continue with IV fluids recheck his chemistries continue with anticoagulation changed to p.o. Xarelto no jose dence of sepsis neurology consulted saturation is normal
[2021-11-28 12:27] LABS: Potassium 4.1 mmol/L (3.5-5.1)
[2021-11-28] MEDS ORDERED: FENTANYL CITR 100 MCG/2 ML IV PRN (18:12)
[2021-11-28] MEDS: RIVAROXABAN 15 MG TABLET PO SCH (20:10)
--- NOTE | 2021-11-29 04:09 | P.PN ---
Subjective Date of Service: 11/29/21 Subjective: No new changes, No C/O voiced, Improving Continue with anticoagulation. Awaiting urology consultation Review of Systems 10-point ROS is otherwise unremarkable Physical Examination - Vital Signs Temperature: 98.3 F Blood Pressure: 130/64 Pulse: 60 Respirations: 17 Pulse Ox (%): 99 - Physical Exam General: Alert, In no apparent distress HEENT: Atraumatic, PERRLA, EOMI Neck: Supple, JVD not distended Respiratory: Clear to auscultation bilaterally, Normal air movement Cardiovascular: Regular rate/rhythm, Normal S1 S2 Gastrointestinal: Normal bowel sounds, No tenderness Musculoskeletal: No tenderness Integumentary: No rashes Neurological: Normal speech, Normal tone, Normal affect Lymphatics: No axilla or inguinal lymphadenopathy - Studies Medications List Reviewed: Yes Assessment & Plan - Problems (Diagnosis) (1) Acute kidney injury Current Visit: Yes Status: Acute (2) Bilateral nephrolithiasis Current Visit: Yes Status: Acute (3) Hydronephrosis due to obstruction of ureter Current Visit: Yes Status: Acute (4) Pulmonary embolism Current Visit: Yes Status: Acute Qualifiers: Pulmonary embolism type: single subsegmental (without acute cor pulmonale) Qualified Code(s): I26.93 - Single subsegmental pulmonary embolism without acute cor pulmonale - Advance Directives Does patient have a Living Will: No Does patient have a Durable POA for Healthcare: No
[2021-11-29 04:35] VITALS: BMI 28.3
[2021-11-29] MEDS: MORPHINE 4 MG/ML SYR IV PRN ×3 (05:08→20:32)
[2021-11-29 05:51] LABS: Absolute Lymphocytes (CBC) 1.4 K/uL (0.7-4.9); MPV 10.2 fL (7.6-11.3)
[2021-11-29 06:30] LABS: Albumin 3.1 g/dL (3.4-5.0); Bilirubin Total 0.7 mg/dL (0.2-1.0); Magnesium 2.1 mg/dL (1.8-2.4); Phosphorus 2.1 mg/dL (2.5-4.9); Potassium 4.1 mmol/L (3.5-5.1); Protein, Total 6.2 g/dL (6.4-8.2); Thyroid Stimulating Hormone 0.718 uIU/mL (0.360-3.740)
--- NOTE | 2021-11-29 08:32 | P.PN ---
Subjective Date of Service: 11/29/21 Chief Complaint: PE, Nephrolithiasis Subjective: Improving (Doing well no new pain complaints no pain) Review of Systems 10-point ROS is otherwise unremarkable Physical Examination - Vital Signs Temperature: 98.3 F Blood Pressure: 130/64 Pulse: 60 Respirations: 17 Pulse Ox (%): 97 - Physical Exam General: Alert, In no apparent distress, Oriented x3 Respiratory: Clear to auscultation bilaterally, Normal air movement Cardiovascular: No edema, Regular rate/rhythm - Studies Medications List Reviewed: Yes Assessment And Plan - Current Problems (Diagnosis) (1) Hydronephrosis due to obstruction of ureter Current Visit: Yes Status: Acute (2) Pulmonary embolism Current Visit: Yes Status: Acute Qualifiers: Pulmonary embolism type: single subsegmental (without acute cor pulmonale) Qualified Code(s): I26.93 - Single subsegmental pulmonary embolism without acute cor pulmonale - Plan Patient has improved no further pain suspect the pain was from the kidney stones function is slightly better and probably has underlying chronic renal dysfunction evaluate for possible discharge continue with anticoagulation for at least 3 months DC antibiotics
[2021-11-29] MEDS: RIVAROXABAN 15 MG TABLET PO SCH ×2 (09:02→20:32)
[2021-11-29] MEDS: NA CHLORIDE 0.9% 1,000 ML IV SCH ×2 (09:13→20:47)
--- NOTE | 2021-11-29 17:30 | RAD REPORT ---
EXAM DESCRIPTION: US - Renal Ultrasound-Complete - 11/29/2021 4:30 pm CLINICAL HISTORY: right flank pain COMPARISON: Abdomen Exam Limited dated 11/28/2021; Abdomen Pelvis W Contrast dated 11/28/2021 FINDINGS: The right kidney measures 14.9 x 6.1 x 5.5 cm. The left kidney measures 12.8 x 6.3 x 5.4 cm. Renal cortical thickness and echogenicity are normal. Mild dilatation of the pelvis and calices o f the right collecting system noted. This degree of hydronephrosis is similar to the November 28 CT study which demonstrated an obstructing right ureteral stone at the pelvic inlet. Nonobstructing calculus seen in the lower pole of the right kidney similar to the CT study. No bladder wall thickening or mass. No intraluminal stone or mass. IMPRESSION: Mild right-sided hydronephrosis similar to the November 28 CT study. Nonobstructing calculus lower pole of the right kidney.
[2021-11-30 04:54] VITALS: O2SAT 94
[2021-11-30 05:36] LABS: Absolute Lymphocytes (CBC) 1.5 K/uL (0.7-4.9); Hematocrit 38.6 % (39.6-49.0); Lymphocytes % 18.1 % (15.3-44.8); MPV 10.1 fL (7.6-11.3); RBC Red Blood Cell Count 4.62 M/uL (4.33-5.43)
[2021-11-30 05:55] LABS: Bilirubin Total 0.9 mg/dL (0.2-1.0); Protein, Total 6.5 g/dL (6.4-8.2)
[2021-11-30] MEDS: NA CHLORIDE 0.9% 1,000 ML IV SCH (07:09)
[2021-11-30] MEDS: RIVAROXABAN 15 MG TABLET PO SCH (08:48)
[2021-11-30 09:16] VITALS: BP 153/68; TEMP 98.6
--- NOTE | 2021-11-30 09:49 | P.DS ---
Discharge Date: 11/30/21 Disposition: ROUTINE DISCHARGE Discharge Condition: GOOD Reason for Admission: PE, Nephrolithiasis - Problems (1) Acute kidney injury Current Visit: Yes Status: Acute (2) Bilateral nephrolithiasis Current Visit: Yes Status: Acute (3) Hydronephrosis due to obstruction of ureter Current Visit: Yes Status: Acute (4) Pulmonary embolism Current Visit: Yes Status: Acute Qualifiers: Pulmonary embolism type: single subsegmental (without acute cor pulmonale) Qualified Code(s): I26.93 - Single subsegmental pulmonary embolism without acute cor pulmonale Brief History of Present Illness: Patient is a 51-year-old male with no past medical history who presented to the ED with a 1 week history of right-sided flank pain and right- sided pain upon inspiration. In the ED he was found to have urine in his blood, creatinine of 1.48. CT showed "small subsegmental pulmonary emboli in the right middle and right lower lobes, distal right ureter 5 mm stone with mild right hydronephrosis and hydroureter, left-sided 2 mm proximal ureteral stone with no evidence of left-sided hydronephrosis, cholelithiasis, small rim-enhancing lesion in the spleen of uncertain significance." Follow-up ultrasound confirmed cholelithiasis with gallbladder thickening without any signs of choledocholithi asis. Negative for DVT. He was given therapeutic dose of Lovenox and Rocephin. His pain has improved with morphine. Will admit patient for further evaluation and treatment of nephrolithiasis with hydronephrosis and pulmonary embolism. Hospital Course: Patient has done well during hospitalization. Pain is better controlled. We were trying to strain urine but unable to get the stone captured. At this time he has been advised to refrain from meat and drink plenty of fluids and refrain from dairy products until we figure out what kind of kidney stone he has. He needs urology follow-up as well as pulmonary follow-up for the pulmonary embolism. Vital Signs/Physical Exam: Temp Pulse Resp BP Pulse Ox 98.6 F 58 18 153/68 H 95 11/30/21 08:00 11/30/21 08:00 11/30/21 08:00 11/30/21 08:00 11/30/21 08:00 General: Alert, In no apparent distress, Oriented x3 Laboratory Data at Discharge: WBC 8.2 K/uL (4.3-10.9) 11/30/21 05:05 Hgb 13.2 g/dL (13.6-17.9) L 11/30/21 05:05 Hct 38.6 % (39.6-49.0) L 11/30/21 05:05 Plt Count 182 K/uL (152-406) 11/30/21 05:05 Sodium 138 mmol/L (136-145) 11/30/21 05:05 Potassium 4.0 mmol/L (3.5-5.1) 11/30/21 05:05 BUN 13 mg/dL (7-18) 11/30/21 05:05 Creatinine 1.29 mg/dL (0.55-1.3) 11/30/21 05:05 Glucose 105 mg/dL (74-106) 11/30/21 05:05 Phosphorus 2.1 mg/dL (2.5-4.9) L 11/29/21 05:25 Magnesium 2.1 mg/dL (1.8-2.4) 11/29/21 05:25 Total Bilirubin 0.9 mg/dL (0.2-1.0) 11/30/21 05:05 AST 18 U/L (15-37) 11/30/21 05:05 ALT 30 U/L (12-78) 11/30/21 05:05 Alkaline Phosphatase 65 U/L (45-117) 11/30/21 05:05 Triglycerides 95 mg/dL (<150) 11/29/21 05:25 Cholesterol 157 mg/dL (<200) 11/29/21 05:25 HDL Cholesterol 36 mg/dL (40-60) L 11/29/21 05:25 Cholesterol/HDL Ratio 4.36 11/29/21 05:25 Lipase 102 U/L (73-393) 11/27/21 23:38 Home Medications: Apixaban [Eliquis] 5 mg PO BID #60 tablet 11/29/21 Cefdinir [Omnicef] 300 mg PO BID #14 capsule 11/29/21 Hydrocodone 7.5/APAP 325 [[place] 7.5/325 mg] 1 tab PO Q6H PRN #30 tab 11/29/21 New Medications: Apixaban [Eliquis] 5 mg PO BID #60 tablet Hydrocodone 7.5/APAP 325 [[place] 7.5/325 mg] 1 tab PO Q6H PRN #30 tab PRN Reason: Pain Cefdinir [Omnicef] 300 mg PO BID #14 capsule Physician Discharge Instructions: -DC IV and DC home -Follow-up with PCP in 1 to 2 weeks -Follow-up with pulmonary and urology in 1 to 2 weeks -Please call Dr. Butts at [phone] if any questions regarding hospital stay -Please call nursing station at [phone] if any nursing or medication questions -Return to the emergency room if symptoms worsen discharge Diet: Regular Activity: Fall precautions Time spent managing pt's care (in minutes): 35
== END 2021-11-30 10:48 | disposition home or self-care (01) | DRG 693 ==
LOC: ER 21:57 → ERHOLD 11-28 02:55 → 2ND 11-28 09:02
PROVIDERS: ADMIT Hospitalist; ATTEND Hospitalist
DX: N13.2 Hydronephrosis with renal and ureteral calculous obstruction (principal); I26.93 Single subsegmental thrombotic pulmonary embolism without acute cor pulmonale; N17.9 Acute kidney failure, unspecified; K80.20 Calculus of gallbladder without cholecystitis without obstruction; D73.89 Other diseases of spleen; Z20.822 Contact with and (suspected) exposure to COVID-19
CPT/HCPCS: 0240U; 36415; 71275; 74177; 76705; 76770; 80048; 80053; 80061; 81003; 83690; 83735; 84100; 84439; 84443; 85025; 93970; 96361; 96372; 96374; 96375; 99285; J1650; J2405; J3010; J7030; Q9967

== ENCOUNTER 2024-11-15 07:22 | Emergency (ER) | payer OTHER ==
--- NOTE | 2024-11-15 08:43 | RAD REPORT ---
Procedure: Chest Single View HISTORY: Cough COMPARISON: none FINDINGS: The lungs appear clear of acute infiltrate. No significant pleural effusion noted. The heart is normal size. IMPRESSION: No acute abnormality is displayed.
[2024-11-15] MEDS ORDERED: MORPHINE 4 MG/ML SYR ONE (08:50)
[2024-11-15] MEDS ORDERED: ONDANSETRON 4 MG/2 ML VIAL ONE (08:50)
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
[2024-11-15 09:20] VITALS: BP 138/89; TEMP 97.4; O2SAT 98
== END 2024-11-15 09:13 | disposition home or self-care (01) ==
LOC: ER 07:22
DX: R51.9 Headache, unspecified (principal); M54.2 Cervicalgia; M54.50 Low back pain, unspecified; V44.5XXA Car driver injured in collision with heavy transport vehicle or bus in traffic accident, initial encounter
CPT/HCPCS: 72131; 70450; 72125; 71045; 96375; 96374; 99284; J2405